=== PATIENT | female | born 1990 | race Asian ===

== ENCOUNTER → 2022-12-11 09:27 | Outpatient (CLI) | payer BC, SELFPAY ==
--- NOTE | ~2022-12-11 | US_ITS ---
EXAMINATION: US thyroid DATE: 12/11/2022 09:52 INDICATION: Nontoxic single thyroid nodule. TECHNIQUE: Multiple ultrasound images of the thyroid were obtained. COMPARISON: None. FINDINGS: The right thyroid lobe measures 5.2 x 1.5 x 1.8 cm. The left thyroid lobe measures 4.5 x 1.1 x 1.4 c m. In the right thyroid lobe, there is a 2.8 cm solid, isoechoic, wider than tall nodule with smooth margin without echogenic foci (TI-RADS TR3). In the left thyroid lobe, there is a 4 mm nodule. IMPRESSION: 1. Thyroid nodules. Ultrasound-guided fine-needle aspiration of the right thyroid nodule is recommend ed. Reviewed, dictated and finalized at location A. [facility] IMPRESSION: 1. Thyroid nodules. Ultrasound-guided fine-needle aspiration of the right thyro id nodule is recommended.
== END ==
PROVIDERS: PCP Nurse Practitioner Family; Visit Provider Nurse Practitioner Family
DX: E04.2 Nontoxic multinodular goiter (principal)
CPT/HCPCS: 76536